=== PATIENT | male | born 2005 | race Caucasian/White ===

== ENCOUNTER 2024-05-13 13:11 | Inpatient (IN) | payer OTHER ==
[~2024-05-13] VITALS: Ht 190.5 cm; Wt 83.0 kg
[2024-05-13 16:05] VITALS: BP 137/76; PULSE 90; RESP 19; TEMP 98.5; O2SAT 100
[2024-05-13] MEDS ORDERED: ACETAMINOPHEN 325 MG TABLET PO PRN ×2 (16:45→17:30)
[2024-05-13] MEDS ORDERED: ONDANSETRON 4 MG TABLET PO PRN (17:45)
[2024-05-13] MEDS ORDERED: DICLOFENAC SODIUM 1% 100 GM GEL [2GM] TP PRN (17:45)
[2024-05-13 20:00] VITALS: BP 134/73; PULSE 94; RESP 18; TEMP 98.1; O2SAT 100
[2024-05-13] MEDS: IBUPROFEN 600 MG TABLET PO SCH (20:14)
[2024-05-13] MEDS: ENOXAPARIN SODIUM 40 MG/0.4 ML PF SYRINGE SQ SCH (20:15)
[2024-05-13] MEDS: -LIDODERM PATCH NOTE- MISC SCH (20:22)
[2024-05-13] MEDS: ETHYL ALCOHOL 62% ANTISEPTIC NASAL SANITIZER 0.6 ML AMPUL NASAL SCH (20:23)
[2024-05-13] MEDS: MELATONIN 3 MG TABLET PO PRN (21:15)
[2024-05-13 23:38] VITALS: O2SAT 100
[2024-05-14] MEDS: OxyCODONE HCL 5 MG IR TABLET PO PRN (01:23)
[2024-05-14 07:53] LABS: BASOPHILS % (AUTO) 0.3 % (0.0-2.0); EOSINOPHILS % (AUTO) 4.7 % (1.0-6.0); HEMATOCRIT 34.6 % (41-53); HEMOGLOBIN 11.3 g/dL (13.5-17.5); LYMPHOCYTES # (AUTO) 1.8 K/uL (1.0-4.8); LYMPHOCYTES % (AUTO) 20.7 % (22.0-44.0); MEAN CORPUSCULAR HEMOGLOBIN 27.8 pg (26.0-34.0); MEAN CORPUSCULAR HGB CONC 32.7 G/dL (31.0-37.0); MEAN CORPUSCULAR VOLUME 85 fL (80-100); MONOCYTES # (AUTO) 1.4 K/uL (0.1-1.0); MONOCYTES % (AUTO) 16.4 % (2.0-9.0); NEUTROPHILS # (AUTO) 5.1 K/uL (1.8-7.7); NEUTROPHILS % (AUTO) 57.9 % (40.0-70.0); PLATELET COUNT (AUTO) 424 K/uL (150-450); RED BLOOD CELL COUNT(AUTO) 4.08 MIL/uL (4.50-5.90); RED CELL DISTRIBUTION WIDTH 13.9 % (11.5-14.5); WHITE BLOOD COUNT (AUTO) 8.9 K/uL (4.5-11.0)
[2024-05-14 08:05] LABS: ALANINE AMINOTRANSFERASE 106 U/L (12-78); ALBUMIN 3.3 g/dL (3.4-5.0); ALKALINE PHOSPHATASE 128 U/L (46-116); ANION GAP 11 mmol/L (8-16); ASPARTATE AMINOTRANSFERASE 34 U/L (15-37); BILIRUBIN,TOTAL 0.9 mg/dL (0.1-1.0); CALCIUM, TOTAL 9.3 mg/dL (8.8-10.5); CARBON DIOXIDE 24 mmol/L (22-29); CHLORIDE 102 mmol/L (98-107); CREATININE 0.67 mg/dL (0.60-1.30); GLOMERULAR FILTR. RATE CALC > 60 mL/min (>60); GLUCOSE,RANDOM 104 mg/dL (70-110); POTASSIUM 4.2 mmol/L (3.5-5.1); SODIUM SERUM 137 mmol/L (136-145); TOTAL PROTEIN, SERUM 7.8 g/dL (6.4-8.2); UREA NITROGEN, BLOOD 17 mg/dL (7-18)
[2024-05-14 08:15] VITALS: BP 149/83; PULSE 96; RESP 20; TEMP 97.6; O2SAT 98
[2024-05-14] MEDS: LIDOCAINE 5% TRANSDERMAL PATCH TD SCH (08:18)
[2024-05-14] MEDS: IBUPROFEN 600 MG TABLET PO SCH (08:19)
[2024-05-14] MEDS ORDERED: ASPIRIN 325 MG DR TABLET PO SCH (09:00)
[2024-05-14 10:39] VITALS: O2SAT 98
[2024-05-14 20:59] VITALS: BP 130/68; PULSE 90; RESP 18; TEMP 98.4; O2SAT 99
[2024-05-14 22:03] VITALS: O2SAT 99
[2024-05-15 08:00] VITALS: BP 142/63; PULSE 92; RESP 18; TEMP 98.3; O2SAT 99
[2024-05-15] MEDS: BACITRACIN 28 GM OINTMENT TP SCH (13:11)
[2024-05-15 20:00] VITALS: BP 130/58; PULSE 94; RESP 18; TEMP 98.3; O2SAT 100; O2SAT 99
[2024-05-15] MEDS: DOCUSATE SODIUM 100 MG CAPSULE PO PRN (21:45)
[2024-05-16 09:00] VITALS: BP 132/73; PULSE 73; RESP 19; TEMP 97.9; O2SAT 98
[2024-05-16 15:57] VITALS: O2SAT 98
[2024-05-16 20:00] VITALS: BP 120/77; PULSE 99; RESP 19; TEMP 98; O2SAT 98
[2024-05-17 08:45] VITALS: BP 106/74; PULSE 94; RESP 18; TEMP 98.8; O2SAT 98
[2024-05-17 15:21] VITALS: O2SAT 98
[2024-05-17 20:00] VITALS: BP 120/73; PULSE 83; RESP 18; TEMP 98.1; O2SAT 98
[2024-05-18 08:00] VITALS: BP 120/62; PULSE 68; RESP 19; TEMP 98; O2SAT 98
[2024-05-18 20:30] VITALS: BP 123/67; PULSE 94; RESP 18; TEMP 98.7; O2SAT 98
[2024-05-18 20:32] VITALS: O2SAT 98
[2024-05-19 08:05] VITALS: BP 123/63; PULSE 82; RESP 18; TEMP 97.9; O2SAT 100
[2024-05-19 10:25] VITALS: O2SAT 98
[2024-05-19 19:40] VITALS: BP 125/57; PULSE 90; RESP 18; TEMP 98; O2SAT 100
[2024-05-19 20:30] VITALS: O2SAT 100
[2024-05-20 08:00] VITALS: BP 132/73; PULSE 85; RESP 18; TEMP 98.6; O2SAT 98
[2024-05-20 20:00] VITALS: BP 127/78; PULSE 93; RESP 18; TEMP 97.8; O2SAT 99
[2024-05-21 06:26] VITALS: BP 119/84; PULSE 83; RESP 18; TEMP 98.6; O2SAT 100
[2024-05-21 11:55] VITALS: BP 120/76; PULSE 96; RESP 18; TEMP 98; O2SAT 100
[2024-05-21 22:33] VITALS: BP 129/56; PULSE 92; RESP 18; TEMP 98.3; O2SAT 98
[2024-05-21 22:40] VITALS: O2SAT 98
[2024-05-22 08:00] VITALS: BP 144/70; PULSE 78; RESP 18; TEMP 97.9; O2SAT 98
[2024-05-22 16:51] VITALS: O2SAT 98
[2024-05-22 18:30] VITALS: BP 124/74; PULSE 81; RESP 18; TEMP 98; O2SAT 99
[2024-05-22 20:05] VITALS: BP 144/79; PULSE 84; RESP 19; TEMP 98.2; O2SAT 98
[2024-05-22 20:13] VITALS: O2SAT 98
[2024-05-23 08:00] VITALS: BP 123/67; PULSE 84; RESP 19; TEMP 98.1; O2SAT 98
[2024-05-23 09:20] VITALS: O2SAT 98
[2024-05-23 20:00] VITALS: BP 132/65; PULSE 89; RESP 19; TEMP 98.6; O2SAT 98
[2024-05-23 22:24] VITALS: O2SAT 98
[2024-05-24 11:02] VITALS: BP 115/61; PULSE 75; RESP 18; TEMP 97.6; O2SAT 100
[2024-05-24 20:00] VITALS: BP 147/73; PULSE 94; RESP 20; TEMP 98.5; O2SAT 97
[2024-05-25 08:00] VITALS: BP 108/65; PULSE 88; RESP 18; TEMP 98; O2SAT 97
[2024-05-25 21:23] VITALS: BP 122/84; PULSE 86; RESP 18; TEMP 98.3; O2SAT 99
[2024-05-25 23:08] VITALS: O2SAT 99
[2024-05-26 08:25] VITALS: BP 135/70; PULSE 90; RESP 18; TEMP 98.2; O2SAT 96
[2024-05-26 20:00] VITALS: BP 118/69; PULSE 86; RESP 20; TEMP 98.3; O2SAT 98
[2024-05-26 23:30] VITALS: O2SAT 98
[2024-05-27 08:00] VITALS: BP 99/56; PULSE 87; RESP 18; TEMP 98.2; O2SAT 97
[2024-05-27] MEDS: IBUPROFEN 600 MG TABLET PO PRN (09:19)
[2024-05-27 20:04] VITALS: BP 139/79; PULSE 78; RESP 18; TEMP 98; O2SAT 100
[2024-05-27 20:49] VITALS: O2SAT 100
[2024-05-28 08:30] VITALS: BP 127/81; PULSE 82; RESP 18; TEMP 98.2; O2SAT 98
[2024-05-28 19:34] VITALS: BP 137/63; PULSE 90; RESP 18; TEMP 98.5; O2SAT 100
[2024-05-28 20:23] VITALS: O2SAT 100
[2024-05-29 08:21] VITALS: BP 123/69; PULSE 72; RESP 18; TEMP 98; O2SAT 98
[2024-05-29 08:56] VITALS: O2SAT 98
== END 2024-05-29 11:50 | disposition short-term general hospital (02) | DRG 534 ==
LOC: 2WR 16:41
PROVIDERS: ADMIT Physical Medicine & Rehabilitation; ATTEND Physical Medicine & Rehabilitation
DX: S72.8X2A Other fracture of left femur, initial encounter for closed fracture (principal); S82.091A Other fracture of right patella, initial encounter for closed fracture; E46 Unspecified protein-calorie malnutrition; S42.034A Nondisplaced fracture of lateral end of right clavicle, initial encounter for closed fracture; S91.111A Laceration without foreign body of right great toe without damage to nail, initial encounter; S42.191A Fracture of other part of scapula, right shoulder, initial encounter for closed fracture; G47.00 Insomnia, unspecified; J45.909 Unspecified asthma, uncomplicated; R26.9 Unspecified abnormalities of gait and mobility; R41.89 Other symptoms and signs involving cognitive functions and awareness; S06.0X0A Concussion without loss of consciousness, initial encounter; D64.9 Anemia, unspecified; V89.2XXA Person injured in unspecified motor-vehicle accident, traffic, initial encounter; Y93.89 Activity, other specified; Y92.89 Other specified places as the place of occurrence of the external cause; Y99.8 Other external cause status; Z88.0 Allergy status to penicillin; Z68.22 Body mass index [BMI] 22.0-22.9, adult
CPT/HCPCS: 80053; 85025; 87081; 92507; 92523; 97110; 97112; 97116; 97140; 97150; 97163; 97166; 97530; 97535; 99366; J1650